=== PATIENT | male | born 1940 | race Caucasian/White ===

== ENCOUNTER 2018-03-22 00:04 | Emergency (ER) | payer BC, MEDICARE ==
[2018-03-22] MEDS ORDERED: LIDOCAINE 1% INJ 10MG/ML (20 ML MDV) SQ ONE (01:26)
--- NOTE | 2018-03-22 01:29 | XR ---
EXAMINATION TYPE: XR hand limited RT DATE OF EXAM: 03/22/2018 COMPARISON: NONE HISTORY: Laceration TECHNIQUE: 2 views FINDINGS: There is some spurring at the DIP joints. There is spurring at the third MP joint with join t space narrowing. There is no sign of radiopaque foreign body. There is narrowing of radiocarpal angel nt space. IMPRESSION: Osteoarthritic changes. No fracture. No sign of a foreign body. There is probably old hea led fracture first metacarpal. There is flexion deformity DIP joint of the little finger.
[2018-03-22] MEDS ORDERED: CEPHALEXIN 500 MG CAP PO STA (01:48)
--- NOTE | 2018-03-22 01:51 | ED ---
Wound/Laceration HPI - General Chief Complaint: Wound/Laceration Stated Complaint: Hand Laceration Time Seen by Provider: 03/22/18 00:45 Source: patient, RN notes reviewed Mode of arrival: ambulatory Limitations: language barrier - History of Present Illness Initial Comments: This is a 77-year-old male who presents to the emergency department with chief complaint of hand laceration. Patient is deaf. His daughter is at bedside and provides interpretation. At approximately 11:30 this evening patient accidentally hit over a glass container. It fell over, hitting a glass top table and shattered. Patient went to go grab for the object as it shattered and he accidentally lacerated his proximal right thumb. Patient is up-to-date with his tetanus vaccination. Denies any other injuries or trauma. Has normal sensation and range of motion. Denies fevers or chills, chest pain or shortness breath, abdominal pain, nausea or vomiting. - Related Data Previous Rx's Medication Instructions Recorded Cephalexin [Keflex] 500 mg PO Q12HR #20 cap 03/22/18 Allergies Allergy/AdvReac Type Severity Reaction Status Date / Time No Known Allergies Allergy Verified 03/22/18 00:25 Review of Systems ROS Statement: Those systems with pertinent positive or pertinent negative responses have been documented in the HPI. ROS Other: All systems not noted in ROS Statement are negative. Past Medical History Past Medical History: No Reported History Additional Past Medical History / Comment(s): deaf History of Any Multi-Drug Resistant Organisms: None Reported Past Surgical History: Hernia Repair Past Psychological History: No Psychological Hx Reported Smoking Status: Never smoker Past Alcohol Use History: None Reported Past Drug Use History: None Reported General Exam - General Exam Comments Initial Comments: General: Awake and alert, well-developed; in no apparent distress. HEENT: Head atraumatic, normocephalic. Pupils are equal, round and reactive to light. Extraocular movements intact. Oropharynx moist without erythema or exudate. Neck: Supple. Normal ROM. Cardiovascular: Regular rate and rhythm. No murmurs, rubs or gallops. Chest symmetrical. Respiratory: Lungs clear to auscultation bilaterally. No wheezes, rales or rhonchi. Normal respiratory effort with no use of accessory muscles. Musculoskeletal: Normal range of motion of the right thumb. There is an approximately 1.0 cm laceration base of the right thumb palmar aspect. Bleeding is controlled. Sensation is intact. Radial pulses are 2+ equal and palpable bilaterally. Skin: [place], warm and dry without rashes. Limitations: language barrier Course Vital Signs 03/22/18 00:17 Temperature 98.6 F Pulse Rate 85 Respiratory 18 Rate Blood Pressure 150/81 O2 Sat by Pulse 97 Oximetry Procedures - Laceration Laceration #1 Consent Obtained: verbal consent Indication: laceration Site: hand (Base of right thumb palmar aspect) Size (cm): 1 Description: linear Depth: simple, single layer Anesthetic Used: lidocaine 1% Anesthesia Technique: local infiltration Amount (mls): 3 Pre-repair: wound explored, irrigated extensively, deep structures intact Type of Sutures: nylon Size of Sutures: 5-0 Number of Sutures: 3 Technique: simple, interrupted Patient Tolerated Procedure: well, no complications Medical Decision Making - Medical Decision Making This is a 77-year-old male who presents to the emergency department with chief complaint of right hand laceration. Patient sustained an approximately 1.0 cm linear laceration to the base of the right thumb. Bleeding is controlled. Patient is neurovascularly intact and has normal range of motion. X-ray was obtained which revealed no evidence for foreign body. 3 sutures were placed and patient tolerated well without complication. He will be started on Keflex. Vitals are stable and he is in no acute distress. Recommended removal of sutures in 10-14 days. Patient's daughter relayed this information to the patient. He is in agreement. All questions answered. - Radiology Data Radiology results: report reviewed, image reviewed X-ray right hand impression: Osteoarthritic changes. No fracture. No sign of a foreign body. There is probably old healed fracture first metacarpal. There is flexion deformity DIP joint of the little finger. Disposition Clinical Impression: Hand laceration Disposition: HOME SELF-CARE Condition: Good Instructions: Laceration (ED), Care For Your Stitches (ED) Additional Instructions: Please take medications as prescribed. Please have sutures removed in 10-14 days. Please follow up with primary care provider within 1-2 days. Return to emergency department if symptoms should worsen or any concerns arise. Prescriptions: Cephalexin [Keflex] 500 mg PO Q12HR #20 cap Is patient prescribed a controlled substance at d/c from ED?: No Referrals: None,Stated [Primary Care Provider] - 1-2 days Time of Disposition: 01:50
[2018-03-22 02:01] VITALS: BP 145/79; PULSE 87; RESP 17; TEMP 98.1
== END 2018-03-22 02:01 | disposition home or self-care (01) ==
LOC: EC 00:04
DX: S61.011A Laceration without foreign body of right thumb without damage to nail, initial encounter (principal); H91.90 Unspecified hearing loss, unspecified ear; W25.XXXA Contact with sharp glass, initial encounter
CPT/HCPCS: 73120; 99283; 12001; J2001

== ENCOUNTER → 2023-09-30 | Outpatient (CLI) | payer MEDICARE ==
--- NOTE | 2023-09-30 16:31 | CT ---
EXAMINATION TYPE: CT brain wo con CT DLP: 1308 mGycm, Automated exposure control for dose reduction was used. DATE OF EXAM: 09/30/2023 3:48 PM COMPARISON: None. CLINICAL INDICATION:Male, 83 years old with history of R41.3 AMNESIA, amnesia, early onset dementia x 3-5 years TECHNIQUE: Brain: Axial CT images of the brain were obtained with coronal and sagittal reformats created and rev iewed. Contrast used: None. Oral contrast used: None. FINDINGS: Brain: Extra-axial spaces: No abnormal extra-axial fluid collections. Ventricular system: Dilatation in proportion to cerebral atrophy. Cerebral parenchyma: Cerebral atrophy. No acute intraparenchymal hemorrhage or mass effect. The childs -white junction is well differentiated. Scattered hypoattenuating areas are seen within the white mat ter. Cerebellum: Unremarkable. Mass effect: No evidence of midline shift. Intracranial vasculature: unremarkable Soft tissues: Normal. Calvarium/osseous structures: No depressed skull fracture. Paranasal sinuses and mastoid air cells: Mild scattered paranasal sinus disease. Visualized orbits: Bilateral aphakia. IMPRESSION: 1. No acute intracranial process. 2. Nonspecific white matter changes, likely secondary to chronic small vessel ischemic disease.
== END | disposition home or self-care (01) ==
LOC: RADCTMAIN 15:13
PROVIDERS: ATTEND Family Medicine
DX: R41.3 Other amnesia (principal); F03.90 Unspecified dementia, unspecified severity, without behavioral disturbance, psychotic disturbance, mood disturbance, and anxiety; R90.82 White matter disease, unspecified
CPT/HCPCS: 70450